=== PATIENT | female | born 1995 | race Caucasian/White ===

== ENCOUNTER 2019-09-09 17:35 | Emergency (ER) | payer OTHER, SELFPAY ==
[2019-09-09 17:39] VITALS: BP 122/77; PULSE 87; RESP 16; TEMP 36.9; O2SAT 98
--- NOTE | 2019-09-09 17:58 | ED.DENTAL ---
HPI - Dental/Oral General Chief complaint: Dental/Oral <Errol Nichole PA-C - Last Filed: 09/09/19 18:02> Stated complaint: toothache <Errol Nichole PA-C - Last Filed: 09/09/19 18:02> Time Seen by Provider: 09/09/19 17:38 <Errol Nichole PA-C - Last Filed: 09/09/19 18:02> Source: patient <Errol Nichole PA-C - Last Filed: 09/09/19 18:02> Mode of arrival: ambulatory <Errol Nichole PA-C - Last Filed: 09/09/19 18:02> Limitations: no limitations <Errol Nichole PA-C - Last Filed: 09/09/19 18:02> History of Present Illness HPI Narrative: Patient is a 24-year-old female who presents to emergency department for evaluation of gross dental decay with history of diffuse dental caries patient does not have a current dental appointment has been taking Tylenol with minimal improvement. Patient denies any fever chills nausea vomiting. Patient on arrival in the room in no distress noting she has not been seen for this complaint <Errol Nichole PA-C - Last Filed: 09/09/19 18:02> Related Data Allergies/adverse reactions: Allergies Allergy/AdvReac Type Severity Reaction Status Date / Time No Known Allergies Allergy Verified 09/09/19 17:48 <Errol Nichole PA-C - Last Filed: 09/09/19 18:02> Review of Systems Review of Systems: All systems reviewed & are unremarkable except as noted in HPI and below <Errol Nichole PA-C - Last Filed: 09/09/19 18:02> PMFSH Social History Social History: Social History Smoking status: Smoker, status unknown Alcohol intake: never Gender identity (if verbalized by the patient): Female <KELLI De La Paz Last Filed: 09/09/19 18:02> Exam Narrative: Exam Narrative: GENERAL: Well-appearing, well-nourished, and in no acute distress. HEAD: Normocephalic, atraumatic. EYES: PERRLA and EOMI. ENT: Nares clear, no rhinorrhea or epistaxis. Mucous membranes moist. Patient with gross dental caries uvula midline no trismus no drooling NECK: Supple. No adenopathy or masses. CHEST: Clear to auscultation. No respiratory distress. No wheezes rales or rhonchi HEART: Regular rate and rhythm. No murmur heard. EXTREMITIES: Normal range of motion. No edema. SKIN: Warm, dry, no rash. NEURO: No focal deficits. Alert and oriented x3. PSYCH: Normal mood and affect. <KELLI De La Paz Last Filed: 09/09/19 18:02> Course Course Emergency Course: Patient in the room aware of case findings treatment plan and diagnosis agreeing to follow-up as directed with dentistry provided with dentistry referrals <KELLI De La Paz Last Filed: 09/09/19 18:02> Vital Signs Vital signs: Vital Signs Temperature 36.9 C 09/09/19 17:39 Pulse Rate 87 09/09/19 17:39 Respiratory Rate 16 09/09/19 17:39 Blood Pressure 122/77 09/09/19 17:39 Pulse Oximetry 98 09/09/19 17:39 Temperature 36.9 C 09/09/19 17:39 Pulse Rate 87 09/09/19 17:39 Respiratory Rate 16 09/09/19 17:39 Blood Pressure 122/77 09/09/19 17:39 Pulse Oximetry 98 09/09/19 17:39 <Errol Nichole PA-C - Last Filed: 09/09/19 18:02> Vital Signs Temperature 36.9 C 09/09/19 17:39 Pulse Rate 87 09/09/19 17:39 Respiratory Rate 16 09/09/19 17:39 Blood Pressure 122/77 09/09/19 17:39 Pulse Oximetry 98 09/09/19 17:39 Temperature 36.9 C 09/09/19 17:39 Pulse Rate 87 09/09/19 17:39 Respiratory Rate 16 09/09/19 17:39 Blood Pressure 122/77 09/09/19 17:39 Pulse Oximetry 98 09/09/19 17:39 <Prisca Hickman MD - Last Filed: 09/09/19 19:17> MDM - Dental/Oral MDM Narrative Medical decision making narrative: Patient in the room at this time aware of case findings treatment plan and diagnosis agreeing to follow-up with dentistry as instructed afebrile nontoxic-appearing no distress felt appropriate for outpatient reevaluation <Errol Gloria
== END 2019-09-09 18:13 | disposition home or self-care (01) ==
PROVIDERS: Emergency Provider Emergency Medicine
DX: K02.9 Dental caries, unspecified (principal)
CPT/HCPCS: 99283